=== PATIENT | female | born 1985 | race Caucasian/White ===

== ENCOUNTER 2017-11-16 05:55 | Emergency (ER) | payer BC ==
[~2017-11-16] VITALS: Ht 157.5 cm; Wt 46.9 kg
--- NOTE | 2017-11-16 06:42 | PHYS DOC ---
Past History Past Medical History: Other Additional Past Medical Histor: borderline diabetes Smoking: Cigarettes Alcohol Use: None Drug Use: None Adult General Chief Complaint Chief Complaint: MULTIPLE COMPLAINTS [facility] HPI 32-year-old female patient complaining of constant nausea with 3-4 episodes of vomiting per day for the last 2 weeks associated with chills and subjective fevers and generalized body ache. Patient states after each episode of vomiting she feels very weak and falling sleep for several hours. Patient complaining of pain in right leg intermittently and constant right lower back/flank for 2 weeks and rated her pain 7/10. Patient denies urinary symptoms, diarrhea and constipation, abdominal pain, chest pain and shortness of breath, sick contact. Patient stated she had the same problem previously with UTI. Patient did not seek medical attention and states she was not able to go to work today. Review of Systems Review of Systems Constitutional: Reports fever and chills and weakness[] Eyes: Denies change in visual acuity, redness, or eye pain [] HENT: Denies nasal congestion or sore throat [] Respiratory: Denies cough or shortness of breath [] Cardiovascular: No additional information not addressed in HPI [] GI: Denies abdominal pain, bloody stools or diarrhea [, reports nausea and vomiting] : Denies dysuria or hematuria [] Musculoskeletal: Reports back pain and muscle pain[] Integument: Denies rash or skin lesions [] Neurologic: Denies headache, focal weakness or sensory changes [] Endocrine: Denies polyuria or polydipsia [] All other systems were reviewed and found to be within normal limits, except as documented in this note. Current Medications Current Medications Current Medications Medications (Trade) Dose Ordered Sig/Orion Start Time Stop Time Status Last Admin Dose Admin Ondansetron HCl (Zofran) 4 mg 1X ONCE 11/16/17 06:45 11/16/17 06:46 UNV Orphenadrine Citrate (Norflex) 60 mg 1X ONCE 11/16/17 06:45 11/16/17 06:46 UNV Sodium Chloride (Normal Saline Flush) 10 ml QSHIFT PRN 11/16/17 06:45 UNV Allergies Allergies Allergies Coded Allergies Type Severity Reaction Last Updated Verified Penicillins Allergy Unknown 11/16/17 Yes ketorolac Allergy Unknown 11/16/17 Yes pneumococcal vaccine Allergy Unknown 11/16/17 Yes tramadol Allergy Unknown 11/16/17 Yes venlafaxine Allergy Unknown 11/16/17 Yes Physical Exam Physical Exam Constitutional: Well developed, well nourished, mild distress, non-toxic appearance. [] HENT: Normocephalic, atraumatic, oropharynx moist, no oral exudates, nose normal. [] Eyes: PERRLA, EOMI, conjunctiva normal, no discharge. [] Neck: Normal range of motion, no tenderness, supple, no stridor. [] Cardiovascular:Heart rate regular rhythm, no murmur [] Lungs & Thorax: Bilateral breath sounds clear to auscultation [] Abdomen: Bowel sounds normal, soft, no tenderness, no masses, no pulsatile masses. [] Skin: Warm, dry, no erythema, no rash. [] Back: No tenderness, right lower paraspinal muscle guarding Extremities: No tenderness, no cyanosis, no clubbing, ROM intact, no edema. [] Neurologic: Alert and oriented X 3, normal motor function, normal sensory function, no focal deficits noted. [] Psychologic: Anxious, judgement normal, mood normal. [] Current Patient Data Lab Results Laboratory Tests Test 11/16/17 05:25 POC Urine HCG, Qualitative hcg negative (Negative) EKG EKG [] Radiology/Procedures Radiology/Procedures [] Course & Med Decision Making Course & Med Decision Making Pertinent Labs reviewed. (See chart for details) Evaluation of patient in ER showed 32-year-old female patient with complaining of episodes of nausea and vomiting and fever and chills and generalized weakness for 2 weeks. Patient had mild right lower paraspinal guarding with 5- 10 WBC and her urine. CBC and CMP was unremarkable. Patient treated with IV fluid and Zofran and Norflex and felt better. Patient instructed to increase fluid intake and follow up with primary care physician. [] Dragon Disclaimer Dragon Disclaimer This electronic medical record was generated, in whole or in part, using a voice recognition dictation system. Departure Departure: Impression: Primary Impression: Urinary tract infection Additional Impressions: Nausea and vomiting Generalized weakness Tobacco abuse Tobacco abuse counseling Disposition: HOME, SELF-CARE (At 0740) Condition: IMPROVED Referrals: PCP,NO (PCP) Patient Instructions: Nausea and Vomiting, Smoking Cessation, Urinary Tract Infection Additional Instructions: Drink plenty of liquids Follow-up with your primary care physician in 3-5 days Return to ER if not getting better Scripts Naproxen (NAPROSYN) 500 Mg Tablet 1 TAB PO BID, #20 TAB 1 Refill Prov: BRIANNE RAMIREZ MD 11/16/17 Sulfamethoxazole/Trimethoprim (BACTRIM DS TABLET) 1 Each Tablet 1 TAB PO BID, #10 TAB Prov: BRIANNE RAMIREZ MD 11/16/17 Ondansetron (ZOFRAN ODT) 4 Mg Tab.rapdis 1 TAB SL Q8HRS, #15 TAB Prov: BRIANNE RAMIREZ MD 11/16/17 Problem Qualifiers BRIANNE RAMIREZ MD Nov 16, 2017 06:42
[2017-11-16] MEDS ORDERED: ORPHENADRINE CITRATE 60 MG/2 ML VIAL. IV ONE (06:45)
[2017-11-16] MEDS ORDERED: 0.9 % SODIUM CHLORIDE 10 ML DISP.SYRIN. IV PRN (06:45)
[2017-11-16] MEDS ORDERED: ONDANSETRON PF 4 MG/2 ML VIAL. IV ONE (06:45)
[2017-11-16] MEDS ORDERED: IV NORMAL SALINE 1,000ML 1,000 ML IV SCH (06:45)
[2017-11-16 06:55] LABS: AMPHETAMINE/METHAMPHETAMINE NEG (NEG); BARBITURATES NEG (NEG); BENZODIAZEPINES NEG (NEG); BILIRUBIN,URINE NEG (NEG); CANNABINOIDS NEG (NEG); CLARITY,URINE CLOUDY; COCAINE NEG (NEG); COLOR,URINE YELLOW; GLUCOSE,URINE NEG (NEG); METHADONE NEG (NEG); NITRITE,URINE NEG (NEG); OPIATES NEG (NEG); PHENCYCLIDINE NEG (NEG); UROBILINOGEN,URINE 0.2 mg/dL (0.2 mg/dL)
[2017-11-16 06:56] LABS: BACTERIA,URINE MOD /HPF (0-FEW); SQUAMOUS EPITHELIAL CELL,UR MANY /LPF
[2017-11-16 06:57] LABS: BASO # 0.1 x10^3/uL (0.0-0.2); BASO % 1 % (0-3); EOS # 0.3 x10^3/uL (0.0-0.7); EOS % 4 % (0-3); HEMATOCRIT 40.5 % (36.0-47.0); LYMPH # 2.6 x10^3/uL (1.0-4.8); LYMPH % 38 % (24-48); MEAN CORPUSCULAR HEMOGLOBIN 33 pg (25-35); MEAN CORPUSCULAR HGB CONC 35 g/dL (31-37); MEAN CORPUSCULAR VOLUME 95 fL (79-100); MONO # 0.6 x10^3/uL (0.0-1.1); MONO % 9 % (0-9); NEUT # 3.3 x10^3uL (1.8-7.7); NEUT % 48 % (31-73); PLATELET COUNT 228 x10^3/uL (140-400); RED BLOOD COUNT 4.25 x10^6/uL (3.50-5.40); RED CELL DISTRIBUTION WIDTH 12.6 % (11.5-14.5); WHITE BLOOD COUNT 6.8 x10^3/uL (4.0-11.0)
[2017-11-16 07:09] LABS: ALBUMIN 3.5 g/dL (3.4-5.0); ALBUMIN/GLOBULIN RATIO 1.2 (1.0-1.7); CREATININE 0.6 mg/dL (0.6-1.0); GFR 117.4; POTASSIUM 3.7 mmol/L (3.5-5.1); TOTAL BILIRUBIN 0.3 mg/dL (0.2-1.0); TOTAL PROTEIN 6.5 g/dL (6.4-8.2)
[2017-11-16] MEDS ORDERED: SULF1TAB24 PO (07:45)
[2017-11-16] MEDS ORDERED: NAPR-683 PO (07:45)
[2017-11-16] MEDS ORDERED: ONDA4TAB10 SL (07:45)
[2017-11-16 08:00] VITALS: BP 102/57
== END 2017-11-16 08:09 | disposition home or self-care (01) ==
LOC: ER 05:55
DX: N39.0 Urinary tract infection, site not specified (principal); R53.1 Weakness; F17.210 Nicotine dependence, cigarettes, uncomplicated; Z71.6 Tobacco abuse counseling; Z88.6 Allergy status to analgesic agent; Z88.0 Allergy status to penicillin; Z88.7 Allergy status to serum and vaccine; Z88.8 Allergy status to other drugs, medicaments and biological substances
CPT/HCPCS: 36415; 80053; 80307; 81001; 81025; 83690; 85025; 87086; 96361; 96374; 96375; 99284; J2360; J2405; G0479; J7030